=== PATIENT | female | born 1995 | race Caucasian/White ===

== ENCOUNTER → 2016-10-15 | Outpatient (CLI) | payer OTHER ==
[~2016-10-15] MED LIST: ASCO10003 PO; CHOL1TAB42 PO; Iron PO; LEVO75TA PO; OMEG340C PO; Ritalin PO; [UNRECOGNIZED DRUG - CODE] PO; metformin PO
[2016-10-15 15:17] LABS: BASO % 0.3 %; BASO ABS # 0.03 K/uL (0-0.2); EOS % 1.9 %; HEMATOCRIT 41.2 % (37-47); IG% 0.4 %; LYMPH ABS # 4.17 K/uL (1.2-3.4); MEAN CELL VOLUME 83.2 fL (80-100); MEAN CORPUSCULAR HEMOGLOBIN 27.1 pg (25-34); MEAN CORPUSCULAR HGB CONC 32.5 g/dl (32-36); MEAN PLATELET VOLUME 10.9 fL (7.4-10.4); MONO % 7.9 %; NEUT % 50.5 %; PLATELET COUNT 295 K/uL (130-400); RED BLOOD COUNT 4.95 M/uL (4.2-5.4)
[2016-10-15 15:29] LABS: ALT/SGPT 20 U/L (12-78); AST/SGOT 12 U/L (15-37); BLOOD UREA NITROGEN 14 mg/dl (7-18); BUN/CREATININE RATIO 19.7 (10-20); CALCIUM 9.3 mg/dl (8.5-10.1); CARBON DIOXIDE 24 mmol/L (21-32); CHLORIDE 105 mmol/L (98-107); CREATININE 0.71 mg/dl (0.60-1.20); GLUCOSE 74 mg/dl (70-99); POTASSIUM 3.9 mmol/L (3.5-5.1); SODIUM 139 mmol/L (136-145)
[2016-10-15 15:32] LABS: ALKALINE PHOSPHATASE 62 U/L (45-117)
[2016-10-15 15:38] LABS: HEPATITIS B AB NEG
[2016-10-15 15:47] LABS: COMPLETE YES
[2016-10-19 13:36] LABS: QUANTIF TB AG-NIL 0.01 IU/ML; QUANTIFERON NIL 0.03 IU/ML
[2016-10-21 10:56] LABS: 18KDIGG BAND NONREACTIVE (NONREACTIVE); 23KDIGG BAND NONREACTIVE (NONREACTIVE); 23KDIGM BAND NONREACTIVE (NONREACTIVE); 28KDIGG BAND NONREACTIVE (NONREACTIVE); 30KDIGG BAND NONREACTIVE (NONREACTIVE); 39KDIGG BAND NONREACTIVE (NONREACTIVE); 39KDIGM BAND NONREACTIVE (NONREACTIVE); 41KDIGG BAND REACTIVE (NONREACTIVE); 41KDIGM BAND NONREACTIVE (NONREACTIVE); 45KDIGG BAND NONREACTIVE (NONREACTIVE); 58KDIGG BAND NONREACTIVE (NONREACTIVE); 66KDIGG BAND NONREACTIVE (NONREACTIVE); 93KDIGG BAND NONREACTIVE (NONREACTIVE)
== END | disposition home or self-care (01) ==
LOC: C.LAB1850 12:17
PROVIDERS: ATTEND Internal Medicine Infectious Disease
DX: D72.820 Lymphocytosis (symptomatic) (principal)

== ENCOUNTER → 2017-04-21 | Outpatient (CLI) | payer OTHER | END | disposition home or self-care (01) | LOC: C.LAB 11:53 | PROVIDERS: ATTEND Family Medicine | DX: E55.9 Vitamin D deficiency, unspecified (principal); E03.9 Hypothyroidism, unspecified; E61.1 Iron deficiency ==